=== PATIENT | male | born 1975 | race Caucasian/White ===

== ENCOUNTER 2022-12-01 06:45 | Day surgery (SDC) | payer OTHER ==
[2022-12-01] VITALS (249 sets, daily range): BP systolic 92–154; BP diastolic 46–109
[2022-12-01 07:58] LABS: BASO% 0.9 % (0-3); EOS% 4.4 % (0-8); HEMATOCRIT 41.4 % (39.0-50.0); HEMOGLOBIN 13.2 g/dl (14.0-18.0); LYMPH% 29.3 % (15-41); MEAN CELL VOLUME 91.6 fL CALC (80.0-100.0); MEAN CORPUSCULAR HGB 29.2 pG CALC (26.0-32.0); MEAN CORPUSCULAR HGB CONC 31.9 g/dL CAL (32.0-36.0); MONO% 8.4 % (2-13); NEUT# 2.59 thou/uL (1.82-7.42); RED BLOOD COUNT 4.52 mill/uL (4.70-6.10); RED CELL DISTRI WIDTH 12.1 % (11.5-15.5)
[2022-12-01 08:08] LABS: ALBUMIN 4.4 g/dL (3.2-5.0); ALKALINE PHOSPHATASE 47 u/l (38-126); ANION GAP 13 (6-22 (CALC)); BILIRUBIN, TOTAL 0.3 mg/dL (0.2-1.3); BUN 15 mg/dL (9-20); BUN/CREATININE RATIO 15 (12-20 (CALC)); CARBON DIOXIDE 30 mmol/l (22-30); CHLORIDE 102 mmol/l (95-108); GFR FOR AFR.AMER. > 60 ML/MIN (>=60 (CALC)); GFR OTHER RACES > 60 ML/MIN (>=60 (CALC)); POTASSIUM 4.9 mmol/l (3.5-5.1); SGOT/AST 27 u/l (17-59); SODIUM 140 mmol/l (137-146); TOTAL PROTEIN 6.9 g/dL (6.3-8.2)
[2022-12-01] MEDS ORDERED: LAMICTAL100 M1 PO (09:15)
[2022-12-01] MEDS ORDERED: NALTREXONE50 MG PO (14:37)
[2022-12-01] MEDS ORDERED: KLONOPIN2 MG PO (14:37)
[2022-12-01] MEDS ORDERED: CLONIDINE0.1 MG PO (14:37)
[2022-12-02 03:41] VITALS: BP 120/64
[2022-12-02 03:55] VITALS: BP 120/64
[2022-12-02 05:52] LABS: ALBUMIN 3.8 g/dL (3.2-5.0); ALKALINE PHOSPHATASE 49 u/l (38-126); ANION GAP 14 (6-22 (CALC)); BUN 12 mg/dL (9-20); BUN/CREATININE RATIO 15 (12-20 (CALC)); CARBON DIOXIDE 24 mmol/l (22-30); CHLORIDE 103 mmol/l (95-108); CREATININE 0.8 mg/dL (0.7-1.3); GFR FOR AFR.AMER. > 60 ML/MIN (>=60 (CALC)); GFR OTHER RACES > 60 ML/MIN (>=60 (CALC)); MAGNESIUM 1.8 mg/dL (1.6-2.3); POTASSIUM 4.3 mmol/l (3.5-5.1); SGOT/AST 41 u/l (17-59); SODIUM 137 mmol/l (137-146); TOTAL PROTEIN 6.1 g/dL (6.3-8.2)
[2022-12-02 05:53] LABS: BILIRUBIN, TOTAL 0.5 mg/dL (0.2-1.3)
[2022-12-02 07:33] VITALS: BP 115/66
[2022-12-02 08:00] VITALS: BP 115/66
[2022-12-02 12:11] VITALS: BP 115/66
== END 2022-12-02 18:22 | disposition home or self-care (01) | DRG 897 ==
LOC: ANR 06:45 → MS2 06:45 → ANR 08:00 → MS2 19:14 → ANR 12-02 18:22
PROVIDERS: ATTEND Anesthesiology
DX: F11.20 Opioid dependence, uncomplicated (principal); I10 Essential (primary) hypertension; F31.9 Bipolar disorder, unspecified
CPT/HCPCS: J0131; J2354; J3475